=== PATIENT | female | born 1985 | race Caucasian/White ===

== ENCOUNTER 2018-07-17 09:57 | Inpatient (IN) ==
[2018-07-17] MEDS ORDERED: CeFAZolin Syr 3,000MG/30 ML 3,000 MG/30 ML SYRINGE IVPB ONE (10:12)
[2018-07-17] MEDS ORDERED: Naloxone 0.4 MG/ML INJ IVP PRN (10:12)
[2018-07-17] MEDS ORDERED: Famotidine 20 MG/2 ML VIAL IVP PRN (10:12)
[2018-07-17] MEDS ORDERED: *HR* Nalbuphine 10 MG/ML AMPUL IVP PRN (10:12)
[2018-07-17] MEDS ORDERED: Ondansetron 4 MG/2 ML VIAL IVP PRN ×2 (10:12→16:04)
[2018-07-17] MEDS ORDERED: Metoclopramide 10 MG/2 ML VIAL IVP PRN ×2 (10:12→16:04)
[2018-07-17] MEDS ORDERED: Ringers Solution, Lactated 1,000 ML IVC SCH ×2 (10:15→16:04)
[2018-07-17] MEDS ORDERED: Ringers Solution, Lactated 1,000 ML ONE ×2 (10:15→13:03)
[2018-07-17 11:03] LABS: Basophils % 0.2 %; Eosinophils # 0.1 K/mcL (0.0-0.6); Eosinophils % 0.6 %; Hematocrit 34.8 % (35.3-44.9); Hemoglobin 11.5 g/dL (11.5-15.4); Immature Granulocytes % 0.4 % (0-4); Lymphocytes % 20.7 %; Mean Corpuscular Hemoglobin 29.1 pg (28.0-33.3); Mean Corpuscular Volume 88.1 fL (83.0-100.0); Monocytes # 0.4 K/mcL (0.0-1.3); Neutrophils # 7.1 K/mcL (1.6-8.9); Platelet Count 268 K/mcL (140-400); Red Blood Count 3.95 M/mcL (3.82-4.97); Red Cell Distribution Width 13.1 % (11.5-14.5); Segmented Neutrophils % 74.1 %
--- NOTE | 2018-07-17 11:03 | Anesthesia Evaluation PreOp ---
Date of Encounter: 07/17/18 Time of Encounter: 10:45 - Past History Planned Operation: Repeat Cardiac History: Denies any Significant Hx Pulmonary History: Denies Any Significant HX CLINICAL PHARMACOLOGIST History: Denies Any Significant HX Other Medical History: Other (Morbid Obesity) Anesthesia History: No Prior Anesthetic Complications : Yes (39 weeks ) Alcohol Use: none Drug use: none Medications and Allergies Amoxicillin 875 mg PO BID #14 tablet 11/01/16 [Rx] Sprintec 28 Day Tablet 11/01/16 [History] 3 Allergy/AdvReac Type Severity Reaction Status Date / Time No Known Allergies Allergy Verified 03/26/16 14:23 - Meds/Allergy Pre-op Review Medications Reviewed: Yes Allergies Reviewed: Yes Beta Blockers on Current Med List: No Anesthesia Results - Labs Laboratory Tests 03/25/17 04/29/18 11:03 08:25 Hgb 11.5 Hct 34.7 L Plt Count 270 Sodium 139 Potassium 4.0 BUN 13 Creatinine 0.77 Anesthesia Exam O2 Sat Height 1.68 m Height 1.68 m Weight 148.7 kg Weight 149 kg Height: 5'6 Weight: 327 lbs NPO (# of Hours): MN Pain Scale: 0 - HEENT Pupil (Motor): Pupils equal, EOMI Mallampati: II Teeth: Normal Oral Opening: Greater than 3 - CLINICAL PHARMACOLOGIST LOC: Oriented CLINICAL PHARMACOLOGIST Motor: Normal RUE, Normal LUE, Normal RLE, Normal LLE, Normal Face CLINICAL PHARMACOLOGIST Sensory: Normal: RUE, LUE, RLE, LLE, Face - Cardiac Rhythm: Regular Murmur: None JVD: No Carotid Bruit: No - Pulmonary Breath Sounds: bilateral Clear Respiratory Effort: Symmetrical Anesthesia Assess/Plan ASA Score: 3 (MO) Modified [place] Scale for Level of Consciousness: Cooperative, oriented, and tranquil Anesthetic Plan: Regional Recovery Plan: PACU (Discussed SAB, possible GA, agrees to proceed)
[2018-07-17 11:22] LABS: Amphetamine Screen,Urine Negative ng/mL (Cutoff=1000); Barbiturate Screen,Urine Negative ng/mL (Cutoff=200); Benzodiazepines Screen,Urine Negative ng/mL (Cutoff=200); Cannabinoid Screen,Urine Negative ng/mL (Cutoff = 50); Cocaine Screen,Urine Negative ng/mL (Cutoff= 300); Opiate Screen,Urine Negative ng/mL (Cutoff=300); Phencyclidine Screen,Urine Negative ng/mL (Cutoff=25)
--- NOTE | 2018-07-17 11:36 | OB/GYN History & Physical ---
Date of Encounter: 07/17/18 Time of Encounter: 11:33 Assessment and Plan (1) 39 weeks gestation of Current visit: No Status: Resolved (2) and not yet delivered in third trimester Current visit: No Status: Resolved (3) Previous delivery affecting , antepartum Current visit: No Status: Resolved Patient will be prepped for a repeat low transverse section possible bilateral partial salpingectomy History of Present Illness HPI: Ms. Belle is a 33 year old female 4 para 2011 at 39-1/7 weeks who presents today for repeat section. Patient's had 2 previous section was counseled she would need to have a repeat. Patient was talk about getting a tubal ligation however she is contemplating whether she wants to do that at this time she was counseled that we did the tubal ligation the risks and benefits of the tubal with a failure rate of 5-8 per thousand with increased risk of ectopic if was to occur. She is not had any contractions has had no bleeding or spotting care has been unremarkable. Patient is Rh+, rubella positive, GBS negative, Varicella positive Past Med Surg Social Fam HX - Past Medical History Source: patient, old records reviewed Medical history: no medical history, other Additional medical history: PCOS Psychiatric history: no psych history - Past Surgical History Surgical History: (x2), cholecystectomy Additional surgical history: tonsils - Social History Smoking Status: Never smoker Smokeless Tobacco Status: No Alcohol use: none Drug use: none - Family History Mother Adopted: No Family Member Ethnicity: Living Status: Still Living Hx Family Cardiac Disorders: Yes (HYPERTENSION) Hx Family Respiratory Disorders: No Hx Family Cancer: No Hx Family GI Disorders: No Hx Family Endocrine Disorder: Yes (brother and mom with diabetes) Hx Family Neuromuscular Disorders: No Hx Family Neurologic Disorders: No Hx Family HEENT Disorders: No Hx Family Autoimmune Disorders: No Obstetrical History - Pregnancies : 4 Para: 2 Term: 2 : 0 Ab's: 1 Livin Medications and Allergies Amoxicillin 875 mg PO BID #14 tablet 11/01/16 [Rx] Sprintec 28 Day Tablet 11/01/16 [History] 3 Allergy/AdvReac Type Severity Reaction Status Date / Time No Known Allergies Allergy Verified 03/26/16 14:23 Exam - Constitutional Constitutional: well developed, well nourished, no acute distress, morbidly obese - HEENT HEENT: EOMI, PERRL, Mucus Membranes Moist - Neck Neck exam: full ROM - Lungs Respiratory exam: CTAB - Cardiovascular Cardiovascular exam: RRR - Abdomen Abdomen: Present: bowel sounds normal, gravid ( heart tones 140s reactive no contraction seen) - Vagina Vagina: Present: normal moisture - Cervix Cervix: Present: lesion Dilation: 0 Effacement: 50 Station: -3 Results Result Diagrams: 07/17/18 10:41 Abnormal lab results Hct 34.8 % (35.3-44.9) L 07/17/18 10:41 MPV 9.0 fL (9.4-12.4) L 07/17/18 10:41 All other labs normal.
[2018-07-17] MEDS ORDERED: *HR* Oxytocin 10 UNIT/ML VIAL IM ONE (12:24)
[2018-07-17] MEDS ORDERED: *HR* Morphine Sulfate/PF 10 MG/10 ML AMPUL ONE (12:24)
[2018-07-17] MEDS ORDERED: *HR* FentaNYL (PF) 100 MCG/2 ML VIAL ONE (12:24)
[2018-07-17] MEDS ORDERED: EPHEDrine 50 MG/ML VIAL ONE (12:26)
[2018-07-17] MEDS ORDERED: *HR* Phenylephrine 10 MG/ML VIAL ONE (12:26)
[2018-07-17] MEDS ORDERED: Lidocaine -MPF 1% 5 ML AMPUL ONE (12:29)
[2018-07-17] MEDS ORDERED: Ondansetron 4 MG/2 ML VIAL ONE (13:03)
[2018-07-17] MEDS ORDERED: Acetaminophen IV 1,000 MG/100 ML INFUS..BTL IVPB ONE (13:05)
[2018-07-17] MEDS ORDERED: Ketorolac 30 MG/ML VIAL IVP ONE (13:05)
[2018-07-17] MEDS ORDERED: *HR* HYDROmorphone (PF) 1 MG/ML SYRINGE IVP PRN (13:05)
--- NOTE | 2018-07-17 14:12 | OB/GYN Procedure Note ---
Section - Date of procedure: 07/17/18 Preop diagnosis: other (IUP at 39 1/7, previous section 2 desires sterilization) Procedure: repeat low transverse, bilateral tubal ligation Surgeon: Kyle Jenkins Blood Loss: 500 Was there an assistant dean of students present: Yes It Sales Consultant: Angi Arizmendi ([facility] 3) Anesthesiologist: Orlin Gallegos Renewals Manager: Orlando Galvan Anesthesia Type: Spinal section complications: none Disposition: L&D Recovery Room Specimens: Right tube segment, Left tube segment - Infant (s) A Infant Delivery Date: 07/17/18 Infant Delivery Time: 13:06 Presentation: vertex Route of delivery: other (section) Gender: Female Viability: Viable Pounds: 8 Ounces: 6 Gram Weight: 3880 kg at 1 minute: 8 at 5 minutes: 9 Shoulder Dystocia: not encountered Specimens collected: cord blood Placenta: spontaneous Cord: 3 umbilical vessels - Narrative Narrative: Patient is a 33-year-old 4 para 2012 at 39 and one sevenths weeks who presented for repeat section. Patient has a history of 2 previous sections recommended repeat patient also wanted a tubal ligation only if the uterus did not look like it would be able to carry another baby. I did appliance counselor her on the risk of a tubal ligation with a failure rate of 5-8 per thousand with increased risk of ectopic if was to occur. Procedure: Patient was taken to the operating room where spinal anesthesia was found be adequate. She was placed in the dorsal supine position with leftward tilt prepped and draped in usual fashion. Timeout was then obtained. A family so incision was made with a scalpel carried down through the underlying tissue to the fascia was identified. The fascia was nicked in the midline and extended laterally with the Casper scissors. The superior and inferior edges of the fascia grasped tented up dissected off the rectus muscles. Rectus muscles were in midline parietal peritoneum was identified did not up and entered sharply this was extended superiorly and inferiorly and it was noted that the lower uterine segment was adhered to the anterior abdominal wall this was dissected off with sharp dissection and electrocautery. The bladder blade was inserted and vesicouterine peritoneum was identified tented up and sharply this was extended laterally the bladder flap created digitally the lower uterine segment was incised with scalpel was noted be very thin did not require much pressure with a knife to get in and extended laterally with digital manipulation. Membranes were then ruptured and the 's head was then brought up to the incision followed by the infant the cord was clamped and cut as infant was being bulb suctioned. Infant was handed off to waiting pediatric team. Cord blood was not needed at this time placenta was delivered spontaneously 3 vessel cord. Uterus was exteriorized and cleaned of all clots and debris within the lower uterine segment was closed using 0 Vicryl in a running locking stitch by a 2 layer closure. Good hemostasis was noted attention was then turned to the fallopian tubes the left fallopian tube was then grasped and knuckle of the tube was then performed and suture-ligated with oh plain 2 including the fimbria and the knuckle was excised. After we excised the knuckle its started to bleed we placed 2 Lovely clamps across the bleeding area this was then suture-ligated with 3-0 Vicryl and hemostasis was obtained. Attention was then turned to the opposite side a knuckle of the tube was then suture ligated with oh plain also including the fimbria this also started to bleed after we excised the knuckle. It required again clamps over the base where the bleeding was and hemostasis was then obtained with 3-0 Vicryl. The left both sides need one started lead and the uterus was then returned to the abdomen. The gutters were cleansed of all clots and debris and copiously irrigated with water with no active bleeding noted rectus muscles were brought together in the midline with an 0 Vicryl the fascia was then closed using a #1 stratafix in a running stitch the subcutaneous tissue was closed using an 0 plain in a running stitch and the skin was closed using a 4-0 Vicryl in a subcuticular manner. All needles and sponge counts were correct 3 she did receive preoperative antibiotics. Patient was taken to the recovery room will be observed 2 hours then be taken to the floor
[2018-07-17] MEDS ORDERED: Oxytocin 20 units/ LR 1000 mL 20 UNIT/1,000 ML BAG IVC ONE (14:24)
[2018-07-17] MEDS ORDERED: Simethicone 80 MG TAB.CHEW PO PRN (16:04)
[2018-07-17] MEDS ORDERED: Oxytocin 20 units/ LR 1000 mL 20 UNIT/1,000 ML BAG IVC SCH (16:04)
[2018-07-17] MEDS ORDERED: Sennosides 8.6 MG TABLET PO PRN (16:04)
[2018-07-17] MEDS ORDERED: *HR* OxyCODONE/APAP 10/325 TABLET PO PRN (16:04)
[2018-07-17] MEDS: Oxytocin 20 units/ LR 1000 mL 20 UNIT/1,000 ML BAG IVC SCH (19:23)
[2018-07-18] MEDS: Oxytocin 20 units/ LR 1000 mL 20 UNIT/1,000 ML BAG IVC SCH (03:37)
[2018-07-18 05:15] LABS: Basophils % 0.2 %; Eosinophils # 0.1 K/mcL (0.0-0.6); Eosinophils % 0.6 %; Hematocrit 29.4 % (35.3-44.9); Immature Granulocytes % 0.4 % (0-4); Lymphocytes # 1.8 K/mcL (0.6-4.6); Mean Corpuscular HGB Conc 32.7 g/dL (31.6-35.5); Mean Corpuscular Hemoglobin 29.1 pg (28.0-33.3); Mean Corpuscular Volume 89.1 fL (83.0-100.0); Mean Platelet Volume 9.5 fL (9.4-12.4); Monocytes # 0.5 K/mcL (0.0-1.3); Monocytes % 4.7 %; Neutrophils # 7.7 K/mcL (1.6-8.9); Platelet Count 185 K/mcL (140-400); Red Cell Distribution Width 13.4 % (11.5-14.5); Segmented Neutrophils % 76.1 %
[2018-07-18] MEDS: Ibuprofen 600 MG TABLET PO PRN ×3 (05:18→22:08)
[2018-07-18 05:25] LABS: Hemoglobin 9.6 g/dL (11.5-15.4)
[2018-07-18 05:58] LABS: Platelet Estimate Normal (Normal)
[2018-07-18] MEDS: Prenatal Vit/FA 1 EACH TABLET PO SCH (09:03)
--- NOTE | 2018-07-18 11:42 | OB/GYN Progress Note ---
Date of Encounter: 07/18/18 Time of Encounter: 11:38 - Assessment and Plan (1) Status post delivery Current Visit: Yes Status: Acute Stable POD#1, LAZARUS without drainage, Continue current management plan Anticipate Discharge tomorrow. (2) anemia Current Visit: Yes Status: Acute Continue iron Subjective - Subjective Patient reports: pain well controlled, ambulating normally : doing well Objective - Vital Signs Latest vital signs: Vital Signs Temp Pulse Resp BP Pulse Ox 07/18/18 08:00 97.9 F 89 14 126/76 96 07/18/18 05:30 98.0 F 88 16 122/77 96 07/17/18 21:11 98.0 F 93 16 108/73 95 07/17/18 19:15 98.1 F 91 16 135/74 97 07/17/18 18:15 97.7 F 98 16 150/80 99 07/17/18 17:24 97.9 F 98 16 144/77 99 07/17/18 16:45 97.4 F L 94 16 143/78 97 07/17/18 16:15 97.9 F 80 16 134/75 98 Intake and Output 07/17/18 07/18/18 07/18/18 23:59 07:59 15:59 Intake Total 400 / 400 1600 / 1600 Output Total 500 / 500 360 / 360 Balance -100 / -100 1240 / 1240 Intake: IV Fluids 1000 / 1000 Pitocin 20 unit In 1,000 ml @ 1000 / 1000 125 mls/hr IVC .Q8H [facility] Rx#: [id number] Oral 400 / 400 600 / 600 Output: Catheter 500 / 500 360 / 360 Other: Weight 146 kg 147 kg Patient Weight 07/18/18 23:59 Weight 147 kg - Exam Lungs: bilateral: normal Chest: Normal S1, Normal S2 Extremities: Present: normal Abdomen: Present: soft Incision: Present: dressed (LAZARUS in place ) Uterus: Present: firm (U) - Labs Labs: Laboratory Results - last 24 hr 07/17/18 07/18/18 11:40 04:57 WBC 10.1 RBC 3.30 L Hgb 9.6 L D Hct 29.4 L MCV 89.1 MCH 29.1 MCHC 32.7 RDW 13.4 Plt Count 185 MPV 9.5 Immature Gran % 0.4 Seg Neutrophils % 76.1 Lymphocytes % 18.0 Monocytes % 4.7 Eosinophils % 0.6 Basophils % 0.2 Neutrophils # 7.7 Lymphocytes # 1.8 Monocytes # 0.5 Eosinophils # 0.1 Basophils # 0.0 Platelet Estimate Normal Hep Bs Antigen Nonreactive
[2018-07-18] MEDS: *HR* OxyCODONE/APAP 5/325 TABLET PO PRN (22:09)
[2018-07-19] MEDS: *HR* OxyCODONE/APAP 5/325 TABLET PO PRN (06:06)
[2018-07-19] MEDS: Ibuprofen 600 MG TABLET PO PRN (06:06)
--- NOTE | 2018-07-19 08:10 | Discharge Summary ---
Date of Encounter: 07/19/18 Time of Encounter: 08:07 - Discharge Diagnosis (1) 39 weeks gestation of Priority: Secondary Status: Resolved (2) and not yet delivered in third trimester Priority: Secondary Status: Resolved (3) Previous delivery affecting , antepartum Priority: Secondary Status: Resolved (4) Status post delivery Priority: Primary Status: Acute - Discharge Medications Prescriptions: OxyCODONE/APAP 5/325 [Percocet 5/325 MG] 1 each PO Q4HR PRN 7 Days #42 tablet PRN Reason: Moderate pain 4-6 Ibuprofen [Motrin] 600 mg PO Q6HR PRN #40 tablet PRN Reason: Cramping Ferrous Sulfate 325 mg PO DAILY #30 tablet Home Medications: Amoxicillin 875 mg PO BID #14 tablet 11/01/16 [Rx] Sprintec 28 Day Tablet 11/01/16 [History] Ferrous Sulfate 325 mg PO DAILY #30 tablet 07/19/18 [Rx] Ibuprofen [Motrin] 600 mg PO Q6HR PRN #40 tablet 07/19/18 [Rx] OxyCODONE/APAP 5/325 [Percocet 5/325 MG] 1 each PO Q4HR PRN 7 Days #42 tablet [Rx] Allergies/Adverse Reactions: 3 Allergy/AdvReac Type Severity Reaction Status Date / Time No Known Allergies Allergy Verified 03/26/16 14:23 Data Procedures and tests throughout hospitalization: Laboratory Tests 07/17/18 07/17/18 07/17/18 10:41 10:41 11:40 WBC 9.6 RBC 3.95 Hgb 11.5 Hct 34.8 L MCV 88.1 MCH 29.1 MCHC 33.0 RDW 13.1 Plt Count 268 MPV 9.0 L Immature Gran % 0.4 Seg Neutrophils % 74.1 Lymphocytes % 20.7 Monocytes % 4.0 Eosinophils % 0.6 Basophils % 0.2 Neutrophils # 7.1 Lymphocytes # 2.0 Monocytes # 0.4 Eosinophils # 0.1 Basophils # 0.0 Platelet Estimate Urine Opiates Screen Negative Ur Barbiturates Screen Negative Ur Phencyclidine Scrn Negative Ur Amphetamines Screen Negative U Benzodiazepines Scrn Negative Urine Cocaine Screen Negative U Marijuana (THC) Screen Negative Ur Drug Screen Interp See Below Hep Bs Antigen Nonreactive 07/18/18 04:57 WBC 10.1 RBC 3.30 L Hgb 9.6 L D Hct 29.4 L MCV 89.1 MCH 29.1 MCHC 32.7 RDW 13.4 Plt Count 185 MPV 9.5 Immature Gran % 0.4 Seg Neutrophils % 76.1 Lymphocytes % 18.0 Monocytes % 4.7 Eosinophils % 0.6 Basophils % 0.2 Neutrophils # 7.7 Lymphocytes # 1.8 Monocytes # 0.5 Eosinophils # 0.1 Basophils # 0.0 Platelet Estimate Normal Urine Opiates Screen Ur Barbiturates Screen Ur Phencyclidine Scrn Ur Amphetamines Screen U Benzodiazepines Scrn Urine Cocaine Screen U Marijuana (THC) Screen Ur Drug Screen Interp Hep Bs Antigen Date of admission: 07/17/18 09:57 Primary care physician: PCP NONE Discharging clinician: Kyle Webster Anticipated date of discharge: 07/19/18 - Patient Status Disposition: Home, Self-Care Condition: Good Functional capacity at discharge: independent ambulation Overall status at discharge: patient is progressing back to baseline - Discharge Instructions Follow Up With: NONE,PCP [Primary Care Provider] - Kyle Webster DO [Partnered Physician] - - Diet and Activity Activity: increase activity as tolerated Diet: advance to your usual diet Hospital Course Reason for admission: section Delivery: section Episiotomy: none Laceration: none complications: none Discharge diagnosis: IUP at term delivered baby: female Hospital course: Patient presented for repeat low transverse section with bilateral partial salpingectomy. Patient's surgery went without any complications did not have a little bit of bleeding recommended that the tubal ligation but that was quickly resolved. Patient's hospital course was unremarkable by day #1 that was advanced she was ambulating was having minimal pain. By hospital day # 2 pain was a little bit more uncomfortable but the Percocet was helping. Patient was passing flatus and no bowel movement and was ready to go home she will be discharged home with prescription for iron sulfate 325 mg 1 every day Motrin 600 mg 1 every 6 as needed for pain and Percocet 5 mg one to 2 every 4-6 hours as needed for pain #42, she will follow up in the office in 2 weeks patient's condition at time is stable. Time Attestation: Total time spent providing and/or coordinating discharge services: - VTE Documentation of Mechanical Device: Intermittent pneumatic compression device Exam - Constitutional Vitals: Temp Pulse Resp BP Pulse Ox 97.5 F L 96 16 124/76 97 07/18/18 20:00 07/18/18 20:00 07/18/18 20:00 07/18/18 20:00 07/18/18 20:00
[2018-07-19 08:22] VITALS: BP 143/81
[2018-07-19] MEDS: Prenatal Vit/FA 1 EACH TABLET PO SCH (08:52)
== END 2018-07-19 10:40 | disposition home or self-care (01) | DRG 784 ==
LOC: 1NENULAB 09:57 → 1NENUOBS 16:04
PROVIDERS: ADMIT Obstetrics & Gynecology; ATTEND Obstetrics & Gynecology